=== PATIENT | female | born 1955 | race Caucasian/White ===

== ENCOUNTER → 2019-12-03 | Outpatient (CLI) | payer BC, OTHER ==
[~2019-12-03] VITALS: Ht 167.7 cm; Wt 70.5 kg
[~2019-12-03] MED LIST: LIDOCAINE 1% INJ 20 ML 20 ML VIAL INJ ONE
[2019-12-03 11:10] VITALS: BP 126/75
[2019-12-03 11:15] VITALS: BP 130/71
[2019-12-03 11:20] VITALS: BP 125/82
--- NOTE | 2019-12-03 14:31 | Diagnostic Imaging Report ---
INDICATION: Right breast calcifications. Patient presents for stereotactic biopsy. TECHNIQUE: The patient was brought to the stereotactic suite and placed anterior in a sitting upright position. The right breast was positioned craniocaudal. The calcifications in the upper slightly inner right breast at mid depth were stereotactically targeted. The superior right breast was prepped and draped in the usual sterile fashion. A small amount of 1% lidocaine was utilized for local anesthesia. An 8 gauge stereotactic needle was advanced from a craniocaudal approach and placed with its tip per stereotatic coordinates. Four core biopsies were obtained with a vacuum-assisted device. A specimen radiograph was obtained demonstrating numerous calcifications in sample labeled #4. There are also several calcifications in sample #1. The marker clip was then deployed. The needle was removed and hemostasis was obtained using manual compression. Followup 2D cc and ML mammography was performed demonstrating the marker clip in the upper and slightly inner right breast at mid depth. A majority of the previously noted calcifications have been removed. All images were viewed on a dedicated workstation. The patient tolerated the procedure well and left the Department in stable condition. IMPRESSION: Successful stereotactic biopsy of right breast calcifications in the upper inner aspect at mid depth utilizing a vacuum-assisted device. Pathology results are currently pending. Dictated by: Dictated on workstation # [id number]
== END ==
LOC: RAD 09:38
PROVIDERS: ATTEND Family Medicine
DX: D05.11 Intraductal carcinoma in situ of right breast (principal); Z17.0 Estrogen receptor positive status [ER+]
CPT/HCPCS: 19081; A4648